=== PATIENT | female | born 1950 | race Caucasian/White ===

== ENCOUNTER → 2019-04-05 | Outpatient (CLI) | payer MEDICARE, OTHER ==
[~2019-04-05] MED LIST: ACETAMINOPHEN-1 EAC2; ADDERALL 5 MG TA5 M1 PO; AMBIEN 5 MG TABL5 M1 PO; BENTYL 20 MG TA20 M1 PO; CALCIUM PO; CLARITIN10 MG PO; CRESTOR5 MG PO; FIORICET; FLONASE; IMITREX100 MG PO; KLONOPIN1 MG PO; LEVOXYL50 MCG PO; MAGNES; MIRALAX255 GM PO; NORCO 10-325 T1 EACH PO; NUCYNTA50 MG PO; OMEGA-31000 MG PO; PREDNISONE; PREMARIN VAG; RANITIDINE 150150 M1 PO; URIBEL CAPSULE1 EACH PO; VERAPAMIL HCL120 M2 PO; VOLTAREN GEL 1100 G1 TOP; ZYRTEC10 M5 PO
== END | disposition home or self-care (01) ==
LOC: M.PC 09:40
DX: M79.18 Myalgia, other site (principal); M54.2 Cervicalgia; M25.512 Pain in left shoulder; I10 Essential (primary) hypertension; G43.909 Migraine, unspecified, not intractable, without status migrainosus; J32.9 Chronic sinusitis, unspecified; Z88.2 Allergy status to sulfonamides; Z88.8 Allergy status to other drugs, medicaments and biological substances; Z79.899 Other long term (current) drug therapy; Z98.890 Other specified postprocedural states

== ENCOUNTER → 2019-04-17 | Outpatient (CLI) | payer MEDICARE, OTHER | LOC: M.PC 10:00 | DX: M47.812 Spondylosis without myelopathy or radiculopathy, cervical region (principal); M50.30 Other cervical disc degeneration, unspecified cervical region; M48.02 Spinal stenosis, cervical region; Z88.8 Allergy status to other drugs, medicaments and biological substances ==